=== PATIENT | male | born 1975 | race Two or more races ===

== ENCOUNTER 2022-07-07 12:58 | Inpatient (IN) | payer MEDICAID ==
[~2022-07-07] VITALS: Ht 177.8 cm; Wt 111.9 kg
[2022-07-07 13:30] LABS: BASOPHILS % (AUTO) 0.5 % (0.0-2.0); EOSINOPHILS % (AUTO) 0.1 % (1.0-6.0); HEMATOCRIT 42.3 % (41-53); HEMOGLOBIN 14.4 g/dL (13.5-17.5); LYMPHOCYTES % (AUTO) 18.8 % (22.0-44.0); MEAN CORPUSCULAR HEMOGLOBIN 27.6 pg (26.0-34.0); MEAN CORPUSCULAR VOLUME 81 fL (80-100); MONOCYTES # (AUTO) 0.4 K/uL (0.1-1.0); MONOCYTES % (AUTO) 3.5 % (2.0-9.0); NEUTROPHILS # (AUTO) 8.2 K/uL (1.8-7.7); NEUTROPHILS % (AUTO) 77.1 % (40.0-70.0); PLATELET COUNT (AUTO) 240 K/uL (150-450); RED CELL DISTRIBUTION WIDTH 15.3 % (11.5-14.5)
[2022-07-07 13:44] LABS: CALCIUM, TOTAL 8.2 mg/dL (8.8-10.5); CREATININE 0.63 mg/dL (0.60-1.30); GLUCOSE,RANDOM 222 mg/dL (70-110); UREA NITROGEN, BLOOD 5 mg/dL (7-18)
[2022-07-07 13:45] LABS: GLOMERULAR FILTR. RATE CALC > 60 mL/min (>60)
[2022-07-07 13:50] LABS: ALANINE AMINOTRANSFERASE 45 U/L (12-78); ALBUMIN 3.8 g/dL (3.4-5.0); ALKALINE PHOSPHATASE 89 U/L (46-116); ASPARTATE AMINOTRANSFERASE 45 U/L (15-37); BILIRUBIN,TOTAL 0.6 mg/dL (0.1-1.0); CARBON DIOXIDE 26 mmol/L (22-29); POTASSIUM 3.5 mmol/L (3.5-5.1); SODIUM SERUM 133 mmol/L (136-145); TOTAL PROTEIN, SERUM 7.6 g/dL (6.4-8.2)
[2022-07-07 13:56] LABS: ANION GAP 10 mmol/L (8-16); CHLORIDE 97 mmol/L (98-107)
[2022-07-07 18:39] LABS: COVID AG,FIA SOURCE NASOPHARYNGEAL
[2022-07-07] MEDS: ZOLPIDEM TARTRATE 10 MG TABLET PO PRN (21:46)
[2022-07-07] MEDS: LORazepam 2 MG TABLET PO PRN (21:46)
[2022-07-07] MEDS: QUEtiapine FUMARATE 100 MG TABLET PO PRN (21:47)
[2022-07-08] MEDS: LORazepam 2 MG TABLET PO PRN ×4 (05:38→20:28)
[2022-07-08 10:50] VITALS: BP 156/104
[2022-07-08] MEDS: QUEtiapine FUMARATE 100 MG TABLET PO PRN ×2 (12:24→20:28)
[2022-07-08] MEDS ORDERED: PETROLATUM,WHITE 28 GM JELLY TP PRN (15:45)
[2022-07-08] MEDS ORDERED: BACITRACIN 28 GM OINTMENT TP PRN (15:45)
[2022-07-08] MEDS ORDERED: ACETAMINOPHEN 325 MG TABLET PO PRN (15:45)
[2022-07-08] MEDS ORDERED: DOCUSATE SODIUM 100 MG CAPSULE PO PRN (15:45)
[2022-07-08] MEDS ORDERED: CloNIDine HCL 0.1 MG TABLET PO PRN (15:45)
[2022-07-08] MEDS ORDERED: MAG HYDROX/AL HYDROX/SIMETH ES 30 ML SUSPENSION UDCUP PO PRN (15:45)
[2022-07-08] MEDS ORDERED: ALBUTEROL SULFATE HFA 90 MCG/PUFF 8 GM INHALER IH PRN (15:45)
[2022-07-08] MEDS ORDERED: LOPERAMIDE HCL 2 MG CAPSULE PO PRN (15:45)
[2022-07-08] MEDS ORDERED: OMEPRAZOLE 20 MG CAPSULE PO PRN (15:45)
[2022-07-08] MEDS ORDERED: MAGNESIUM HYDROXIDE SUSPENSION 30 ML UDCUP PO PRN (15:45)
[2022-07-08] MEDS ORDERED: BENZOCAINE/MENTHOL LOZENGE PO PRN (15:45)
[2022-07-08] MEDS ORDERED: ONDANSETRON HCL 4 MG TABLET PO PRN (15:45)
[2022-07-08] MEDS: MetFORMIN HCL 500 MG TABLET PO SCH (17:01)
[2022-07-08] MEDS: GlipiZIDE 5 MG TABLET PO SCH (17:01)
[2022-07-08] MEDS: SIMVASTATIN 10 MG TABLET PO SCH (20:28)
[2022-07-08] MEDS: ZOLPIDEM TARTRATE 10 MG TABLET PO PRN (23:56)
[2022-07-09 05:41] VITALS: BP 156/100
[2022-07-09] MEDS: LORazepam 2 MG TABLET PO PRN ×4 (05:41→22:04)
[2022-07-09 06:32] LABS: HEMOGLOBIN A1C 9.2 % (3.8-5.6)
[2022-07-09 06:41] LABS: ANION GAP 10 mmol/L (8-16); CALCIUM, TOTAL 8.6 mg/dL (8.8-10.5); CARBON DIOXIDE 28 mmol/L (22-29); CHLORIDE 94 mmol/L (98-107); CHOL/HDL RATIO 2.6 (4.2-7.3); CHOLESTEROL 150 mg/dL (131-200); CREATININE 0.62 mg/dL (0.60-1.30); GLUCOSE,RANDOM 229 mg/dL (70-110); HDL CHOLESTEROL 58 mg/dL (40-60); LDL CHOL (CALC.) 62 mg/dL (0-130); POTASSIUM 3.5 mmol/L (3.5-5.1); SODIUM SERUM 132 mmol/L (136-145); THYROID STIMULATING HORMONE 2.52 uIU/mL (0.36-3.74); TRIGLYCERIDES 148 mg/dL (15-150); UREA NITROGEN, BLOOD 5 mg/dL (7-18)
[2022-07-09 06:45] LABS: GLOMERULAR FILTR. RATE CALC > 60 mL/min (>60)
[2022-07-09] MEDS: GlipiZIDE 5 MG TABLET PO SCH ×2 (06:52→16:28)
[2022-07-09] MEDS: MetFORMIN HCL 500 MG TABLET PO SCH ×2 (06:52→16:28)
[2022-07-09] MEDS: LISINOPRIL 10 MG TABLET PO SCH (08:51)
[2022-07-09] MEDS: VERAPAMIL HCL 120 MG TABLET PO SCH (08:51)
[2022-07-09] MEDS: ASPIRIN 81 MG CHEWABLE TABLET PO SCH (08:51)
[2022-07-09] MEDS: OMEPRAZOLE 20 MG CAPSULE PO SCH (08:51)
[2022-07-09] MEDS: QUEtiapine FUMARATE 100 MG TABLET PO PRN (08:53)
[2022-07-09 09:43] VITALS: BP 163/98
[2022-07-09] MEDS: IBUPROFEN 600 MG TABLET PO PRN (12:50)
[2022-07-09 16:39] VITALS: BP 138/76
[2022-07-09] MEDS: ZOLPIDEM TARTRATE 10 MG TABLET PO PRN (20:07)
[2022-07-09] MEDS: SIMVASTATIN 10 MG TABLET PO SCH (20:07)
[2022-07-10 00:44] LABS: APPEARANCE,URINE CLEAR (CLEAR); BILIRUBIN,URINE NEGATIVE (NEGATIVE); GLUCOSE, URINE (UA) >=1000 mg/dL (NEGATIVE); KETONES,URINE TRACE mg/dL (NEGATIVE); LEUKOCYTE ESTERASE ,URINE NEGATIVE (NEGATIVE); NITRATE,URINE NEGATIVE (NEGATIVE); OCCULT BLOOD,URINE NEGATIVE (NEGATIVE); PROTEIN,URINE TRACE mg/dL (NEGATIVE); SPECIFIC GRAVITIY, URINE 1.034 (1.003-1.030)
[2022-07-10 00:51] LABS: AMPHET/METH SCREEN,URINE NEGATIVE (NEGATIVE); BARBITURATE SCREEN, URINE NEGATIVE (NEGATIVE); BENZODIAZEPINES SCREEN,URINE NEGATIVE (NEGATIVE); CANNABINOID SCREEN,URINE NEGATIVE (NEGATIVE); COCAINE SCREEN,URINE NEGATIVE (NEGATIVE); METHADONE SCREEN, URINE NEGATIVE (NEGATIVE); OPIATE SCREEN,URINE NEGATIVE (NEGATIVE)
[2022-07-10 00:52] LABS: PHENCYCLIDINE SCREEN,URINE NEGATIVE (NEGATIVE)
[2022-07-10 01:01] LABS: BACTERIA,URINE None Seen /HPF (None Seen); RBC,URINE None Seen /HPF (0-2); WBC,URINE None Seen /HPF (0-5)
[2022-07-10 04:21] VITALS: BP 135/80
[2022-07-10] MEDS: IBUPROFEN 600 MG TABLET PO PRN (04:24)
[2022-07-10 06:04] VITALS: BP 156/98
[2022-07-10] MEDS: LORazepam 2 MG TABLET PO PRN ×4 (06:04→20:09)
[2022-07-10] MEDS: GlipiZIDE 5 MG TABLET PO SCH ×2 (06:59→16:02)
[2022-07-10] MEDS: MetFORMIN HCL 500 MG TABLET PO SCH ×2 (06:59→17:34)
[2022-07-10] MEDS: LITHIUM CARBONATE 300 MG CAPSULE PO SCH ×2 (09:14→16:02)
[2022-07-10] MEDS: THIAMINE 100 MG TABLET PO SCH (09:14)
[2022-07-10] MEDS: ASPIRIN 81 MG CHEWABLE TABLET PO SCH (09:14)
[2022-07-10] MEDS: MULTIVITAMINS, THERAPEUTIC TABLET PO SCH (09:14)
[2022-07-10] MEDS: DIVALPROEX SODIUM 500 MG DR TABLET PO SCH ×2 (09:14→20:09)
[2022-07-10] MEDS: GABAPENTIN 400 MG CAPSULE PO SCH ×3 (09:14→16:02)
[2022-07-10] MEDS: FOLIC ACID 1 MG TABLET PO SCH (09:14)
[2022-07-10] MEDS: LISINOPRIL 10 MG TABLET PO SCH (09:14)
[2022-07-10] MEDS: OMEPRAZOLE 20 MG CAPSULE PO SCH (09:14)
[2022-07-10] MEDS: VERAPAMIL HCL 120 MG TABLET PO SCH (09:15)
[2022-07-10 09:52] VITALS: BP 132/65
[2022-07-10 16:44] VITALS: BP 129/59
[2022-07-10] MEDS: SIMVASTATIN 10 MG TABLET PO SCH (20:09)
[2022-07-10] MEDS: QUEtiapine FUMARATE 300 MG TABLET PO SCH (20:09)
[2022-07-10] MEDS: MIRTAZAPINE 15 MG TABLET PO SCH (20:09)
[2022-07-11] MEDS: IBUPROFEN 600 MG TABLET PO PRN ×2 (05:11→16:28)
[2022-07-11 05:12] VITALS: BP 140/80
[2022-07-11] MEDS: GlipiZIDE 5 MG TABLET PO SCH ×2 (06:35→16:10)
[2022-07-11] MEDS: MetFORMIN HCL 500 MG TABLET PO SCH ×2 (06:35→16:10)
[2022-07-11 08:00] VITALS: BP 124/88
[2022-07-11] MEDS: ASPIRIN 81 MG CHEWABLE TABLET PO SCH (08:32)
[2022-07-11] MEDS: LITHIUM CARBONATE 300 MG CAPSULE PO SCH ×2 (08:32→16:10)
[2022-07-11] MEDS: MULTIVITAMINS, THERAPEUTIC TABLET PO SCH (08:32)
[2022-07-11] MEDS: DIVALPROEX SODIUM 500 MG DR TABLET PO SCH ×2 (08:32→20:19)
[2022-07-11] MEDS: VERAPAMIL HCL 120 MG TABLET PO SCH (08:32)
[2022-07-11] MEDS: LISINOPRIL 10 MG TABLET PO SCH (08:32)
[2022-07-11] MEDS: OMEPRAZOLE 20 MG CAPSULE PO SCH (08:32)
[2022-07-11] MEDS: THIAMINE 100 MG TABLET PO SCH (08:33)
[2022-07-11] MEDS: GABAPENTIN 400 MG CAPSULE PO SCH ×3 (08:33→16:10)
[2022-07-11] MEDS: FOLIC ACID 1 MG TABLET PO SCH (08:33)
[2022-07-11] MEDS: LORazepam 2 MG TABLET PO PRN ×4 (09:28→23:04)
[2022-07-11 16:28] VITALS: BP 104/69
[2022-07-11 16:33] VITALS: BP 104/69
[2022-07-11] MEDS: SIMVASTATIN 10 MG TABLET PO SCH (20:19)
[2022-07-11] MEDS: QUEtiapine FUMARATE 300 MG TABLET PO SCH (20:20)
[2022-07-11] MEDS: MIRTAZAPINE 15 MG TABLET PO SCH (20:20)
[2022-07-11] MEDS: ZOLPIDEM TARTRATE 10 MG TABLET PO PRN (23:04)
[2022-07-12] MEDS: GlipiZIDE 5 MG TABLET PO SCH ×2 (06:42→17:24)
[2022-07-12] MEDS: MetFORMIN HCL 500 MG TABLET PO SCH ×2 (06:43→17:25)
[2022-07-12 08:00] VITALS: BP 127/79
[2022-07-12] MEDS: DIVALPROEX SODIUM 500 MG DR TABLET PO SCH ×2 (09:02→20:28)
[2022-07-12] MEDS: LISINOPRIL 10 MG TABLET PO SCH (09:02)
[2022-07-12] MEDS: LITHIUM CARBONATE 300 MG CAPSULE PO SCH ×2 (09:02→17:25)
[2022-07-12] MEDS: THIAMINE 100 MG TABLET PO SCH (09:02)
[2022-07-12] MEDS: OMEPRAZOLE 20 MG CAPSULE PO SCH (09:02)
[2022-07-12] MEDS: MULTIVITAMINS, THERAPEUTIC TABLET PO SCH (09:02)
[2022-07-12] MEDS: FOLIC ACID 1 MG TABLET PO SCH (09:02)
[2022-07-12] MEDS: ASPIRIN 81 MG CHEWABLE TABLET PO SCH (09:02)
[2022-07-12] MEDS: GABAPENTIN 400 MG CAPSULE PO SCH ×3 (09:02→17:24)
[2022-07-12] MEDS: LORazepam 2 MG TABLET PO PRN ×4 (09:04→22:39)
[2022-07-12] MEDS: VERAPAMIL HCL 120 MG TABLET PO SCH (09:05)
[2022-07-12 10:14] VITALS: BP 127/79
[2022-07-12] MEDS: IBUPROFEN 600 MG TABLET PO PRN (10:15)
[2022-07-12 16:10] VITALS: BP 112/68
[2022-07-12] MEDS: MIRTAZAPINE 15 MG TABLET PO SCH (20:29)
[2022-07-12] MEDS: SIMVASTATIN 10 MG TABLET PO SCH (20:29)
[2022-07-12] MEDS: QUEtiapine FUMARATE 300 MG TABLET PO SCH (20:29)
[2022-07-13 03:24] VITALS: BP 149/100
[2022-07-13] MEDS: IBUPROFEN 600 MG TABLET PO PRN (03:24)
[2022-07-13] MEDS: GlipiZIDE 5 MG TABLET PO SCH ×2 (06:38→16:36)
[2022-07-13] MEDS: MetFORMIN HCL 500 MG TABLET PO SCH ×2 (06:38→18:25)
[2022-07-13 07:15] LABS: HEMATOCRIT 38.6 % (41-53); HEMOGLOBIN 13.1 g/dL (13.5-17.5); MEAN CORPUSCULAR HEMOGLOBIN 28.2 pg (26.0-34.0); MEAN CORPUSCULAR HGB CONC 33.9 G/dL (31.0-37.0); MEAN CORPUSCULAR VOLUME 83 fL (80-100); PLATELET COUNT (AUTO) 148 K/uL (150-450); RED BLOOD CELL COUNT(AUTO) 4.65 MIL/uL (4.50-5.90); RED CELL DISTRIBUTION WIDTH 15.7 % (11.5-14.5)
[2022-07-13 07:39] LABS: BAND NEUTROPHILS % (MANUAL) 5 % (0-5); LYMPHOCYTES % (MANUAL) 22 % (22-44); MONOCYTES % (MANUAL) 6 % (2-9); SEGMENTED NEUTROPHILS % 67 % (40-70)
[2022-07-13 07:42] LABS: COVID AG,FIA SOURCE NASAL SWAB
[2022-07-13 07:44] LABS: ANION GAP 10 mmol/L (8-16); CALCIUM, TOTAL 8.5 mg/dL (8.8-10.5); CARBON DIOXIDE 25 mmol/L (22-29); CHLORIDE 98 mmol/L (98-107); CREATININE 0.64 mg/dL (0.60-1.30); GLOMERULAR FILTR. RATE CALC > 60 mL/min (>60); GLUCOSE,RANDOM 281 mg/dL (70-110); PHOSPHORUS 3.1 mg/dL (2.5-4.9); POTASSIUM 4.1 mmol/L (3.5-5.1); SODIUM SERUM 133 mmol/L (136-145); UREA NITROGEN, BLOOD 10 mg/dL (7-18)
[2022-07-13] MEDS: FOLIC ACID 1 MG TABLET PO SCH (08:16)
[2022-07-13] MEDS: VERAPAMIL HCL 120 MG TABLET PO SCH (08:16)
[2022-07-13] MEDS: LITHIUM CARBONATE 300 MG CAPSULE PO SCH ×2 (08:16→16:36)
[2022-07-13] MEDS: GABAPENTIN 400 MG CAPSULE PO SCH ×3 (08:16→16:36)
[2022-07-13] MEDS: ASPIRIN 81 MG CHEWABLE TABLET PO SCH (08:16)
[2022-07-13] MEDS: OMEPRAZOLE 20 MG CAPSULE PO SCH (08:16)
[2022-07-13] MEDS: MULTIVITAMINS, THERAPEUTIC TABLET PO SCH (08:16)
[2022-07-13] MEDS: LISINOPRIL 10 MG TABLET PO SCH (08:16)
[2022-07-13] MEDS: THIAMINE 100 MG TABLET PO SCH (08:16)
[2022-07-13] MEDS: DIVALPROEX SODIUM 500 MG DR TABLET PO SCH ×2 (08:16→20:05)
[2022-07-13] MEDS: LORazepam 2 MG TABLET PO PRN (08:17)
[2022-07-13 16:41] VITALS: BP 122/64
[2022-07-13] MEDS: MIRTAZAPINE 15 MG TABLET PO SCH (20:05)
[2022-07-13] MEDS: QUEtiapine FUMARATE 300 MG TABLET PO SCH (20:05)
[2022-07-13] MEDS: SIMVASTATIN 10 MG TABLET PO SCH (20:05)
[2022-07-14] MEDS: GlipiZIDE 5 MG TABLET PO SCH ×2 (06:32→16:12)
[2022-07-14] MEDS: MetFORMIN HCL 500 MG TABLET PO SCH ×2 (06:55→16:12)
[2022-07-14] MEDS: ASPIRIN 81 MG CHEWABLE TABLET PO SCH (09:04)
[2022-07-14] MEDS: GABAPENTIN 400 MG CAPSULE PO SCH ×3 (09:04→16:11)
[2022-07-14] MEDS: DIVALPROEX SODIUM 500 MG DR TABLET PO SCH ×2 (09:04→20:19)
[2022-07-14] MEDS: LISINOPRIL 10 MG TABLET PO SCH (09:04)
[2022-07-14] MEDS: THIAMINE 100 MG TABLET PO SCH (09:04)
[2022-07-14] MEDS: LITHIUM CARBONATE 300 MG CAPSULE PO SCH ×2 (09:04→16:12)
[2022-07-14] MEDS: FOLIC ACID 1 MG TABLET PO SCH (09:04)
[2022-07-14] MEDS: VERAPAMIL HCL 120 MG TABLET PO SCH (09:05)
[2022-07-14] MEDS: MULTIVITAMINS, THERAPEUTIC TABLET PO SCH (09:05)
[2022-07-14] MEDS: OMEPRAZOLE 20 MG CAPSULE PO SCH (09:05)
[2022-07-14 09:30] VITALS: BP 118/76
[2022-07-14] MEDS: IBUPROFEN 600 MG TABLET PO PRN ×2 (09:35→16:37)
[2022-07-14 16:34] VITALS: BP 138/78
[2022-07-14] MEDS: MIRTAZAPINE 15 MG TABLET PO SCH (20:19)
[2022-07-14] MEDS: SIMVASTATIN 10 MG TABLET PO SCH (20:19)
[2022-07-14] MEDS: QUEtiapine FUMARATE 300 MG TABLET PO SCH (20:19)
[2022-07-14] MEDS: QUEtiapine FUMARATE 100 MG TABLET PO PRN (21:42)
[2022-07-14] MEDS: ZOLPIDEM TARTRATE 10 MG TABLET PO PRN (21:42)
[2022-07-15] MEDS: MetFORMIN HCL 500 MG TABLET PO SCH ×2 (06:33→16:13)
[2022-07-15] MEDS: GlipiZIDE 5 MG TABLET PO SCH ×2 (06:33→16:12)
[2022-07-15 07:30] LABS: LITHIUM 0.29 mmol/L (0.60-1.20)
[2022-07-15 08:30] VITALS: BP 113/79
[2022-07-15] MEDS: VERAPAMIL HCL 120 MG TABLET PO SCH (09:54)
[2022-07-15] MEDS: MULTIVITAMINS, THERAPEUTIC TABLET PO SCH (09:55)
[2022-07-15] MEDS: LITHIUM CARBONATE 300 MG CAPSULE PO SCH ×2 (09:55→16:12)
[2022-07-15] MEDS: OMEPRAZOLE 20 MG CAPSULE PO SCH (09:55)
[2022-07-15] MEDS: FOLIC ACID 1 MG TABLET PO SCH (09:55)
[2022-07-15] MEDS: ASPIRIN 81 MG CHEWABLE TABLET PO SCH (09:55)
[2022-07-15] MEDS: THIAMINE 100 MG TABLET PO SCH (09:55)
[2022-07-15] MEDS: GABAPENTIN 400 MG CAPSULE PO SCH ×3 (09:55→16:12)
[2022-07-15] MEDS: DIVALPROEX SODIUM 500 MG DR TABLET PO SCH ×2 (09:55→20:09)
[2022-07-15] MEDS: LISINOPRIL 10 MG TABLET PO SCH (09:55)
[2022-07-15] MEDS: QUEtiapine FUMARATE 100 MG TABLET PO PRN ×2 (13:09→20:56)
[2022-07-15 16:00] VITALS: BP 136/69
[2022-07-15] MEDS: IBUPROFEN 600 MG TABLET PO PRN (17:02)
[2022-07-15] MEDS: SIMVASTATIN 10 MG TABLET PO SCH (20:08)
[2022-07-15] MEDS: QUEtiapine FUMARATE 300 MG TABLET PO SCH (20:08)
[2022-07-15] MEDS: MIRTAZAPINE 15 MG TABLET PO SCH (20:08)
[2022-07-15] MEDS: ZOLPIDEM TARTRATE 10 MG TABLET PO PRN (20:56)
[2022-07-16] MEDS: MetFORMIN HCL 500 MG TABLET PO SCH ×2 (06:36→17:14)
[2022-07-16] MEDS: GlipiZIDE 5 MG TABLET PO SCH ×2 (06:36→17:14)
[2022-07-16] MEDS: GABAPENTIN 400 MG CAPSULE PO SCH ×3 (08:48→17:14)
[2022-07-16] MEDS: DIVALPROEX SODIUM 500 MG DR TABLET PO SCH ×2 (08:48→21:25)
[2022-07-16] MEDS: THIAMINE 100 MG TABLET PO SCH (08:48)
[2022-07-16] MEDS: ASPIRIN 81 MG CHEWABLE TABLET PO SCH (08:48)
[2022-07-16] MEDS: LISINOPRIL 10 MG TABLET PO SCH (08:48)
[2022-07-16] MEDS: LITHIUM CARBONATE 300 MG CAPSULE PO SCH ×2 (08:48→17:14)
[2022-07-16] MEDS: FOLIC ACID 1 MG TABLET PO SCH (08:48)
[2022-07-16] MEDS: MULTIVITAMINS, THERAPEUTIC TABLET PO SCH (08:48)
[2022-07-16 08:49] VITALS: BP 105/62
[2022-07-16] MEDS: OMEPRAZOLE 20 MG CAPSULE PO SCH (08:49)
[2022-07-16] MEDS: VERAPAMIL HCL 120 MG TABLET PO SCH (08:50)
[2022-07-16] MEDS: IBUPROFEN 600 MG TABLET PO PRN (15:36)
[2022-07-16] MEDS: QUEtiapine FUMARATE 100 MG TABLET PO PRN ×2 (15:36→23:07)
[2022-07-16 16:12] VITALS: BP 110/72
[2022-07-16 16:36] VITALS: BP 120/78
[2022-07-16] MEDS ORDERED: INSULIN LISPRO 100 UNITS/ML SQ PRN (19:15)
[2022-07-16] MEDS ORDERED: DEXTROSE 50%-WATER 25 GM/50 ML SYRINGE IVP PRN (19:15)
[2022-07-16] MEDS: QUEtiapine FUMARATE 300 MG TABLET PO SCH (21:25)
[2022-07-16] MEDS: SIMVASTATIN 10 MG TABLET PO SCH (21:28)
[2022-07-16] MEDS: MIRTAZAPINE 15 MG TABLET PO SCH (21:44)
[2022-07-16] MEDS: ZOLPIDEM TARTRATE 10 MG TABLET PO PRN (23:06)
[2022-07-17] MEDS: MetFORMIN HCL 500 MG TABLET PO SCH ×2 (06:59→16:03)
[2022-07-17] MEDS: GlipiZIDE 5 MG TABLET PO SCH ×2 (06:59→16:02)
[2022-07-17 08:00] VITALS: BP 101/54
[2022-07-17] MEDS: LISINOPRIL 10 MG TABLET PO SCH ×2 (09:00→09:08)
[2022-07-17] MEDS: VERAPAMIL HCL 120 MG TABLET PO SCH ×2 (09:00→09:07)
[2022-07-17] MEDS: FOLIC ACID 1 MG TABLET PO SCH (09:07)
[2022-07-17] MEDS: DIVALPROEX SODIUM 500 MG DR TABLET PO SCH ×2 (09:07→21:41)
[2022-07-17] MEDS: OMEPRAZOLE 20 MG CAPSULE PO SCH (09:07)
[2022-07-17] MEDS: ASPIRIN 81 MG CHEWABLE TABLET PO SCH (09:08)
[2022-07-17] MEDS: GABAPENTIN 400 MG CAPSULE PO SCH ×3 (09:08→16:03)
[2022-07-17] MEDS: THIAMINE 100 MG TABLET PO SCH (09:08)
[2022-07-17] MEDS: MULTIVITAMINS, THERAPEUTIC TABLET PO SCH (09:08)
[2022-07-17] MEDS: LITHIUM CARBONATE 300 MG CAPSULE PO SCH ×2 (09:08→16:02)
[2022-07-17 10:45] VITALS: BP 110/59
[2022-07-17] MEDS: IBUPROFEN 600 MG TABLET PO PRN (10:45)
[2022-07-17 16:00] VITALS: BP 124/65
[2022-07-17] MEDS: QUEtiapine FUMARATE 100 MG TABLET PO PRN ×2 (16:06→21:48)
[2022-07-17 16:24] VITALS: BP 124/65
[2022-07-17] MEDS: SIMVASTATIN 10 MG TABLET PO SCH (21:41)
[2022-07-17] MEDS: MIRTAZAPINE 15 MG TABLET PO SCH (21:41)
[2022-07-17] MEDS: QUEtiapine FUMARATE 300 MG TABLET PO SCH (21:41)
[2022-07-17] MEDS: ZOLPIDEM TARTRATE 10 MG TABLET PO PRN (21:48)
[2022-07-18] MEDS: GlipiZIDE 5 MG TABLET PO SCH ×2 (06:08→16:14)
[2022-07-18] MEDS: MetFORMIN HCL 500 MG TABLET PO SCH ×2 (06:08→16:15)
[2022-07-18 08:00] VITALS: BP 108/65
[2022-07-18] MEDS: LITHIUM CARBONATE 300 MG CAPSULE PO SCH ×2 (08:53→16:14)
[2022-07-18] MEDS: GABAPENTIN 400 MG CAPSULE PO SCH ×3 (08:53→16:14)
[2022-07-18] MEDS: DIVALPROEX SODIUM 500 MG DR TABLET PO SCH ×2 (08:53→20:40)
[2022-07-18] MEDS: VERAPAMIL HCL 120 MG TABLET PO SCH (08:53)
[2022-07-18] MEDS: LISINOPRIL 10 MG TABLET PO SCH (08:53)
[2022-07-18] MEDS: MULTIVITAMINS, THERAPEUTIC TABLET PO SCH (08:53)
[2022-07-18] MEDS: FOLIC ACID 1 MG TABLET PO SCH (08:53)
[2022-07-18] MEDS: THIAMINE 100 MG TABLET PO SCH (08:53)
[2022-07-18] MEDS: ASPIRIN 81 MG CHEWABLE TABLET PO SCH (08:53)
[2022-07-18] MEDS: OMEPRAZOLE 20 MG CAPSULE PO SCH (08:53)
[2022-07-18 10:31] VITALS: BP 111/67
[2022-07-18] MEDS: IBUPROFEN 600 MG TABLET PO PRN (10:31)
[2022-07-18] MEDS: QUEtiapine FUMARATE 100 MG TABLET PO PRN ×2 (15:03→22:25)
[2022-07-18 16:30] VITALS: BP 117/68
[2022-07-18] MEDS: QUEtiapine FUMARATE 300 MG TABLET PO SCH (20:40)
[2022-07-18] MEDS: SIMVASTATIN 10 MG TABLET PO SCH (20:40)
[2022-07-18] MEDS: MIRTAZAPINE 15 MG TABLET PO SCH (20:41)
[2022-07-18] MEDS: ZOLPIDEM TARTRATE 10 MG TABLET PO PRN (21:35)
[2022-07-19] MEDS: MetFORMIN HCL 500 MG TABLET PO SCH ×2 (06:31→16:42)
[2022-07-19] MEDS: GlipiZIDE 5 MG TABLET PO SCH ×2 (06:31→16:42)
[2022-07-19 08:00] VITALS: BP 117/74
[2022-07-19 08:05] VITALS: BP 117/74
[2022-07-19] MEDS: IBUPROFEN 600 MG TABLET PO PRN ×2 (08:05→14:05)
[2022-07-19] MEDS: LISINOPRIL 10 MG TABLET PO SCH (09:10)
[2022-07-19] MEDS: MULTIVITAMINS, THERAPEUTIC TABLET PO SCH (09:10)
[2022-07-19] MEDS: OMEPRAZOLE 20 MG CAPSULE PO SCH (09:10)
[2022-07-19] MEDS: VERAPAMIL HCL 120 MG TABLET PO SCH (09:10)
[2022-07-19] MEDS: LITHIUM CARBONATE 300 MG CAPSULE PO SCH ×2 (09:10→16:42)
[2022-07-19] MEDS: DIVALPROEX SODIUM 500 MG DR TABLET PO SCH ×2 (09:10→21:04)
[2022-07-19] MEDS: ASPIRIN 81 MG CHEWABLE TABLET PO SCH (09:10)
[2022-07-19] MEDS: THIAMINE 100 MG TABLET PO SCH (09:10)
[2022-07-19] MEDS: GABAPENTIN 400 MG CAPSULE PO SCH ×3 (09:10→16:42)
[2022-07-19] MEDS: FOLIC ACID 1 MG TABLET PO SCH (09:10)
[2022-07-19] MEDS: QUEtiapine FUMARATE 100 MG TABLET PO PRN ×2 (13:50→22:02)
[2022-07-19 14:05] VITALS: BP 125/88
[2022-07-19 16:00] VITALS: BP 108/63
[2022-07-19] MEDS: MIRTAZAPINE 15 MG TABLET PO SCH (21:03)
[2022-07-19] MEDS: SIMVASTATIN 10 MG TABLET PO SCH (21:03)
[2022-07-19] MEDS: QUEtiapine FUMARATE 300 MG TABLET PO SCH (21:04)
[2022-07-19] MEDS: ZOLPIDEM TARTRATE 10 MG TABLET PO PRN (22:02)
[2022-07-20] MEDS: GlipiZIDE 5 MG TABLET PO SCH ×2 (06:56→16:24)
[2022-07-20] MEDS: MetFORMIN HCL 500 MG TABLET PO SCH ×2 (06:56→16:24)
[2022-07-20 07:59] LABS: COVID AG,FIA SOURCE NASAL SWAB
[2022-07-20] MEDS: VERAPAMIL HCL 120 MG TABLET PO SCH (09:00)
[2022-07-20] MEDS: DIVALPROEX SODIUM 500 MG DR TABLET PO SCH ×2 (09:16→21:17)
[2022-07-20] MEDS: LITHIUM CARBONATE 300 MG CAPSULE PO SCH ×2 (09:16→16:24)
[2022-07-20] MEDS: LISINOPRIL 10 MG TABLET PO SCH (09:16)
[2022-07-20] MEDS: ASPIRIN 81 MG CHEWABLE TABLET PO SCH (09:16)
[2022-07-20] MEDS: OMEPRAZOLE 20 MG CAPSULE PO SCH (09:16)
[2022-07-20] MEDS: MULTIVITAMINS, THERAPEUTIC TABLET PO SCH (09:16)
[2022-07-20] MEDS: FOLIC ACID 1 MG TABLET PO SCH (09:16)
[2022-07-20] MEDS: GABAPENTIN 400 MG CAPSULE PO SCH ×3 (09:16→16:24)
[2022-07-20] MEDS: THIAMINE 100 MG TABLET PO SCH (09:16)
[2022-07-20 11:39] VITALS: BP 122/78
[2022-07-20] MEDS: IBUPROFEN 600 MG TABLET PO PRN (11:39)
[2022-07-20] MEDS: QUEtiapine FUMARATE 100 MG TABLET PO PRN (13:26)
[2022-07-20 16:25] VITALS: BP 11/69
[2022-07-20] MEDS: MIRTAZAPINE 15 MG TABLET PO SCH (21:17)
[2022-07-20] MEDS: SIMVASTATIN 10 MG TABLET PO SCH (21:18)
[2022-07-20] MEDS: QUEtiapine FUMARATE 300 MG TABLET PO SCH (21:18)
[2022-07-21] MEDS: GlipiZIDE 5 MG TABLET PO SCH ×2 (06:23→16:44)
[2022-07-21] MEDS: MetFORMIN HCL 500 MG TABLET PO SCH ×2 (06:24→16:45)
[2022-07-21 08:10] VITALS: BP 115/68
[2022-07-21] MEDS: LITHIUM CARBONATE 300 MG CAPSULE PO SCH ×2 (08:10→16:44)
[2022-07-21] MEDS: DIVALPROEX SODIUM 500 MG DR TABLET PO SCH ×2 (08:10→20:07)
[2022-07-21] MEDS: LISINOPRIL 10 MG TABLET PO SCH (08:10)
[2022-07-21] MEDS: ASPIRIN 81 MG CHEWABLE TABLET PO SCH (08:10)
[2022-07-21] MEDS: GABAPENTIN 400 MG CAPSULE PO SCH ×3 (08:10→16:44)
[2022-07-21] MEDS: FOLIC ACID 1 MG TABLET PO SCH (08:11)
[2022-07-21] MEDS: IBUPROFEN 600 MG TABLET PO PRN ×2 (08:11→15:06)
[2022-07-21] MEDS: MULTIVITAMINS, THERAPEUTIC TABLET PO SCH (08:11)
[2022-07-21] MEDS: OMEPRAZOLE 20 MG CAPSULE PO SCH (08:11)
[2022-07-21] MEDS: THIAMINE 100 MG TABLET PO SCH (08:11)
[2022-07-21] MEDS: VERAPAMIL HCL 120 MG TABLET PO SCH (08:12)
[2022-07-21 15:04] VITALS: BP 119/67
[2022-07-21] MEDS: QUEtiapine FUMARATE 100 MG TABLET PO PRN ×2 (15:06→21:44)
[2022-07-21 16:08] VITALS: BP 119/67
[2022-07-21] MEDS: QUEtiapine FUMARATE 300 MG TABLET PO SCH (20:07)
[2022-07-21] MEDS: SIMVASTATIN 10 MG TABLET PO SCH (20:07)
[2022-07-21] MEDS: MIRTAZAPINE 15 MG TABLET PO SCH (20:07)
[2022-07-21 20:44] LABS: LITHIUM 0.47 mmol/L (0.60-1.20)
[2022-07-21] MEDS: ZOLPIDEM TARTRATE 10 MG TABLET PO PRN (21:45)
[2022-07-22] MEDS: GlipiZIDE 5 MG TABLET PO SCH (06:34)
[2022-07-22] MEDS: MetFORMIN HCL 500 MG TABLET PO SCH (06:34)
[2022-07-22] MEDS: LITHIUM CARBONATE 300 MG CAPSULE PO SCH (09:02)
[2022-07-22] MEDS: MULTIVITAMINS, THERAPEUTIC TABLET PO SCH (09:02)
[2022-07-22] MEDS: LISINOPRIL 10 MG TABLET PO SCH (09:02)
[2022-07-22] MEDS: OMEPRAZOLE 20 MG CAPSULE PO SCH (09:02)
[2022-07-22] MEDS: THIAMINE 100 MG TABLET PO SCH (09:02)
[2022-07-22] MEDS: GABAPENTIN 400 MG CAPSULE PO SCH (09:02)
[2022-07-22] MEDS: FOLIC ACID 1 MG TABLET PO SCH (09:02)
[2022-07-22] MEDS: DIVALPROEX SODIUM 500 MG DR TABLET PO SCH (09:02)
[2022-07-22] MEDS: ASPIRIN 81 MG CHEWABLE TABLET PO SCH (09:03)
[2022-07-22] MEDS: VERAPAMIL HCL 120 MG TABLET PO SCH (09:04)
[2022-07-22] MEDS ORDERED: LITH300C3 PO (16:59)
[2022-07-22] MEDS ORDERED: QUET300T19 PO (16:59)
[2022-07-22] MEDS ORDERED: DIVA-112 PO (16:59)
== END 2022-07-22 09:02 | disposition home or self-care (01) | DRG 750 ==
LOC: EDBD 13:01 → EMS 13:01 → 3EI 07-08 09:38
PROVIDERS: ADMIT Psychiatry & Neurology Psychiatry; ATTEND Psychiatry & Neurology Psychiatry
DX: F25.9 Schizoaffective disorder, unspecified (principal); M62.82 Rhabdomyolysis; R45.851 Suicidal ideations; E87.1 Hypo-osmolality and hyponatremia; E11.65 Type 2 diabetes mellitus with hyperglycemia; F10.129 Alcohol abuse with intoxication, unspecified; E66.9 Obesity, unspecified; F41.9 Anxiety disorder, unspecified; G47.00 Insomnia, unspecified; K21.9 Gastro-esophageal reflux disease without esophagitis; I10 Essential (primary) hypertension; K59.00 Constipation, unspecified; Z20.822 Contact with and (suspected) exposure to COVID-19; Z59.00 Homelessness unspecified; Z63.4 Disappearance and death of family member; Z79.899 Other long term (current) drug therapy; Z68.35 Body mass index [BMI] 35.0-35.9, adult
CPT/HCPCS: 80048; 80053; 80061; 80164; 80178; 80307; 81001; 81003; 83036; 83735; 84100; 84443; 85007; 85025; 85027; 99285; G0480